=== PATIENT | female | born 1985 | race African-American/Black ===

== ENCOUNTER 2017-01-07 16:40 | Emergency (ER) | payer SELFPAY ==
[~2017-01-07] VITALS: Ht 170.2 cm; Wt 130.0 kg
[~2017-01-07 16:40] MED LIST: ALBU0.08 NEB; ALBUAER3 INH; AZIT250T3 PO; PRED20 PO
[2017-01-07 16:41] VITALS: BP 164/78; PULSE 71; RESP 12; TEMP 97.6; O2SAT 98
[2017-01-07] MEDS ORDERED: PROPARACAINE HCL 0.5% OPHT SOLN 15 ML BTL RIGHT EYE ONE (18:15)
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
[2017-01-07 19:32] VITALS: BP 151/63
== END 2017-01-07 19:37 | disposition home or self-care (01) ==
LOC: NEPB 16:40
DX: S05.11XA Contusion of eyeball and orbital tissues, right eye, initial encounter (principal); H57.8 Other specified disorders of eye and adnexa; H53.149 Visual discomfort, unspecified; H53.8 Other visual disturbances; J45.909 Unspecified asthma, uncomplicated; W50.0XXA Accidental hit or strike by another person, initial encounter
CPT/HCPCS: 99284

== ENCOUNTER 2017-01-26 22:45 | Emergency (ER) | payer SELFPAY ==
[~2017-01-26] VITALS: Ht 170.2 cm; Wt 127.3 kg
[2017-01-26 22:46] VITALS: BP 128/60; PULSE 93; RESP 16; TEMP 98.2; O2SAT 98
[2017-01-26] MEDS ORDERED: CYCL1TAB29 PO (23:21)
[2017-01-26] MEDS ORDERED: DICL50TA3 PO (23:21)
--- NOTE | 2017-01-26 23:25 | PD ---
HPI Chief Complaint: Back/ Neck Pain or Injury Time Seen by Provider: 23:22 Travel History International Travel<30 days: No Contact w/Intl Traveler<30days: No Traveled to known affect area: No History of Present Illness HPI 31-year-old black female presents to emergency room with complaints of left lower back pain. She states that now for the last several hours she is developed pain in her left lower back. Worse with bending and movement. She states the pain is moderate but can be severe with movement. She denies any nausea vomiting. No dysuria, frequency or hematuria. She also was on the states that she was cleaning up her house even though she had back pain and dropped her stereo speaker onto her right hand. She is now also having right hand pain. She denies any numbness or tingling. Pain is worse with movement. Some relief with elevation. [facility] Past Medical History Narrative Medical aSTHMA, BACK PAIN Asthma: Yes Diminished Hearing: No Respiratory: Yes Tetanus Vaccination: < 5 Years Influenza Vaccination: No ?: Not LMP: 01/12/2017 Past Surgical History Surgical History: No Previous Surgery Social History Alcohol Use: No Tobacco Use: Yes Substance Use: No Allergies-Medications (Allergen,Severity, Reaction): Uncoded Allergies: gatorade (Allergy, Severe, 11/21/16) Reported Meds & Prescriptions Reported Meds & Active Scripts Active Flexeril (Cyclobenzaprine HCl) 10 Mg Tab 10 Mg PO TID Diclofenac Sodium DR (Diclofenac Sodium) 50 Mg Tabdr 50 Mg PO TID Review of Systems Except as stated in HPI: all other systems reviewed are Neg Physical Exam Narrative GENERAL: Well-developed, well-nourished in no apparent distress. Nontoxic appearing. HEAD: Normocephalic, atraumatic. EYES: Pupils equal round and reactive. Extraocular motions intact. No scleral icterus. No injection or drainage. ENT: Nose clear. Throat without erythema, tonsillar hypertrophy or exudate. Uvula midline. Airway patent. NECK: Trachea midline. Supple, nontender, moves head freely. No central bony tenderness or spasm. CARDIOVASCULAR: Regular rate and rhythm without murmurs, gallops, or rubs. RESPIRATORY: Clear to auscultation. Breath sounds equal bilaterally. No wheezes , rales, or rhonchi. GASTROINTESTINAL: Abdomen soft, non-tender, nondistended. No hepato-splenomegaly , or palpable masses. No guarding. EXTREMITIES: No clubbing, cyanosis, or edema. Examination the right hand reveals pain to the distal third of the fourth and fifth metacarpals. The skin is intact. Minimal swelling. Early ecchymosis. No pain in the fingers, wrist , elbow or shoulder. The left upper extremity as well as lower extremities are unremarkable. BACK: Complains of diffuse lower lumbar tenderness more so on the left side of the right. No point localization. Without deformity. No flank tenderness. NEUROLOGICAL: Awake, alert and oriented x 3 .Cranial nerves grossly intact. Motor and sensory grossly within normal limits. Normal speech. Data Data Last Documented VS Vital Signs Date Time Temp Pulse Resp B/P Pulse Ox O2 Delivery O2 Flow Rate FiO2 01/26/17 22:46 98.2 93 16 128/60 98 Room Air Orders Hand, Complete ([id number]) (01/26/17 23:20) Ice/Cold Pack (01/26/17 23:20) Ketorolac Inj (Toradol Inj) (01/26/17 23:30) Orphenadrine Inj (Norflex Inj) (01/26/17 23:30) MDM Medical Decision Making Medical Screen Exam Complete: Yes Emergency Medical Condition: Yes Medical Record Reviewed: Yes Interpretation(s) Right hand: Negative for acute fracture. Differential Diagnosis MDM: High Differential diagnoses: Fracture, sprain, strain, dislocation, contusion, neurovascular injury, back strain Narrative Course X-ray of the right hand is negative for acute bony injury. Patient is given Toradol 60 and Norflex 60 g IM. This is acute back strain, right hand contusion Diagnosis Primary Impression: acute back strain Additional Impression: Contusion of right hand Qualified Code: S60.221A - Contusion of right hand, initial encounter Patient Instructions: General Instructions Additional Instructions: Rest. Ice for the next 3 days followed by heat . Flexeril and Voltaren. Follow-up with a primary care doctor in one week. Return to the ER for emergencies. Med/Other Pt SpecificInfo: Prescription(s) given Scripts Cyclobenzaprine (Flexeril)10 Mg Tab10 Mg PO TID #30 TAB Prov:Simona Cpoe MD 01/26/[address] 50 Mg Tabdr50 Mg PO TID #30 TAB Prov:Smiona Cope MD 01/26/17 Disposition: 01 DISCHARGE HOME Condition: Stable Husam Martinze Jan 26, 2017 23:25
[2017-01-26] MEDS ORDERED: ORPHENADRINE INJ 60 MG/2 ML AMP IM ONE (23:30)
[2017-01-26] MEDS ORDERED: KETOROLAC TROMETHAMINE 60 MG/2 ML (IM) VIAL IM ONE (23:30)
--- NOTE | 2017-01-27 00:16 | RADRPT ---
EXAM DATE/TIME: 01/26/2017 23:32 [facility] COMPARISON: No previous studies available for comparison. INDICATIONS : Right hand pain after a speaker fell on hand. MEDICAL HISTORY : None. SURGICAL HISTORY : None. ENCOUNTER: Initial ACUITY: 1 day PAIN SCORE: 5/10 LOCATION: Right hand FINDINGS: Three view examination of the right hand demonstrates no soft tissue swelling, dislocation, or fractu re. The carpal bones appear intact. The interphalangeal and metacarpophalangeal joints are intact. Bony mineralization is normal. CONCLUSION: Normal examination for a patient of this age. Husam Cabral MD on January 27, 2017 at 0:14 Board Certified Radiologist. This report was verified electronically.
== END 2017-01-27 00:42 | disposition home or self-care (01) ==
LOC: NEPB 22:45
DX: S39.012A Strain of muscle, fascia and tendon of lower back, initial encounter (principal); S60.221A Contusion of right hand, initial encounter; Z72.0 Tobacco use; Z87.09 Personal history of other diseases of the respiratory system; Z87.39 Personal history of other diseases of the musculoskeletal system and connective tissue; X58.XXXA Exposure to other specified factors, initial encounter; W20.8XXA Other cause of strike by thrown, projected or falling object, initial encounter; Y93.E9 Activity, other interior property and clothing maintenance; Y92.009 Unspecified place in unspecified non-institutional (private) residence as the place of occurrence of the external cause
CPT/HCPCS: 73130; 96372; 99283; J1885; J2360

== ENCOUNTER 2017-02-12 14:30 | Emergency (ER) | payer SELFPAY ==
[~2017-02-12] VITALS: Ht 170.2 cm; Wt 140.0 kg
[~2017-02-12 14:30] MED LIST changes: -ALBU0.08 NEB; -ALBUAER3 INH; -AZIT250T3 PO; +CYCL1TAB29 PO; +DICL50TA3 PO; -PRED20 PO
[2017-02-12 14:31] VITALS: BP 133/77; PULSE 78; RESP 18; TEMP 98.3; O2SAT 97
--- NOTE | 2017-02-12 15:47 | PD ---
HPI Chief Complaint: Back/ Neck Pain or Injury Time Seen by Provider: 15:46 Travel History International Travel<30 days: No Contact w/Intl Traveler<30days: No Traveled to known affect area: No History of Present Illness HPI 31-year-old female presents to the emergency Department with complaint of back pain all over since yesterday. She denies injury, straining, heavy lifting. Has had similar back pain but not this bad. Says she was seen here a few weeks ago for similar symptoms. Denies encopresis, incontinence, saddle anesthesias. Denies dysuria, urgency or frequency, hesitancy. Denies paresthesias, loss of sensation, decreased range of motion, decreased strength to bilateral lower extremities. Denies fever, chills, nausea, vomiting, abdominal pain, shortness of breath, chest pain. Denies IV drug use, cancer. Has not taken any medications or tried any treatments to alleviate her symptoms. Pain is constant. Describes it as a wrenching pain that tightens and untightens. No known relieving factors. Aggravated with movement. Allergies to Gatorade. History of asthma. No other modifying factors or associated signs and symptoms. PFSH Past Medical History Asthma: Yes Diminished Hearing: No Respiratory: Yes ?: Not LMP: 01/12/17 Social History Alcohol Use: No Tobacco Use: Yes Substance Use: No Allergies-Medications (Allergen,Severity, Reaction): Uncoded Allergies: gatorade (Allergy, Severe, 11/21/16) Reported Meds & Prescriptions Reported Meds & Active Scripts Active Diclofenac Sodium DR (Diclofenac Sodium) 50 Mg Tabdr 50 Mg PO TID Flexeril (Cyclobenzaprine HCl) 10 Mg Tab 10 Mg PO TID Review of Systems Except as stated in HPI: all other systems reviewed are Neg Physical Exam Narrative GENERAL: Well-nourished, well-developed female patient, in no acute distress; tearful crying SKIN: Warm and dry. HEAD: Atraumatic. Normocephalic. EYES: Pupils equal and round. No scleral icterus. No injection or drainage. ENT: Mucosa pink and moist. Airway patent. NECK: Trachea midline. CARDIOVASCULAR: Regular rate. RESPIRATORY: No accessory muscle use. GASTROINTESTINAL: Obese. MUSCULOSKELETAL: Bilateral lower extremities supple and non-tense with 2+ pedal pulses and sensory intact; with full range of motion and 5/5 strength. Active dorsiflexion and extension of bilateral feet. Ambulatory in room and hallway with normal gait. Sitting up in bed at 90. No obvious deformities. No clubbing. No cyanosis. No edema. BACK: Diffuse pain on light palpation to mid and lower back. Unable to pinpoint specific area of pain. Pain seems to be out of proportion for exam. No obvious deformities. NEUROLOGICAL: Awake and alert. Oriented 3. No obvious cranial nerve deficits. Motor grossly within normal limits. Normal speech. Moves all extremities. 5/5 strength to all extremities. Sensory intact. PSYCHIATRIC: Appropriate mood and affect; insight and judgment normal. Data Data Last Documented VS Vital Signs Date Time Temp Pulse Resp B/P Pulse Ox O2 Delivery O2 Flow Rate FiO2 02/12/17 14:31 98.3 78 18 133/77 97 Room Air Orders Ketorolac Inj (Toradol Inj) (02/12/17 16:00) Orphenadrine Inj (Norflex Inj) (02/12/17 16:00) Urinalysis - C+S If Indicated (02/12/17 15:47) Labs Laboratory Tests Test 02/12/17 15:50 Urine Color YELLOW Urine Turbidity HAZY Urine pH 6.5 Urine Specific [place] 1.033 Urine Protein TRACE mg/dL Urine Glucose (UA) NEG mg/dL Urine Ketones 10 mg/dL Urine Occult Blood NEG Urine Nitrite NEG Urine Bilirubin NEG Urine Urobilinogen 2.0 MG/DL Urine Leukocyte Esterase SMALL Urine RBC LESS THAN 1 /hpf Urine WBC 5 /hpf Urine Squamous Epithelial 9 /hpf Cells Urine Bacteria RARE /hpf Urine Mucus FEW /lpf Microscopic Urinalysis Comment CULT NOT INDICATED MDM Medical Decision Making Medical Screen Exam Complete: Yes Emergency Medical Condition: Yes Medical Record Reviewed: Yes Differential Diagnosis Muscle spasms of back, back strain, UTI Narrative Course 31-year-old female who is crying and tearful with back pain. Her pain seems to be out of proportion with physical exam. Patient is ambulatory in the room and in the hallway with a normal gait. She was seen on January 26 with similar complaint, although she says her back pain was not as bad as it is now. Patient is afebrile and nontoxic-appearing. She denies fever, chills, nausea, vomiting. Denies IV drug use, cancer. Denies encopresis, incontinence, saddle anesthesias. Denies urinary symptoms. I will check a urine to rule out UTI. Toradol and Norflex ordered. Urinalysis ordered. 1701: Urinalysis without signs of infection. Diclofenac and Flexeril prescribed for home. Patient verbalizes understanding and agreement with treatment plan. Patient is medically cleared and stable for discharge. Discussed reasons to return to the emergency department. Instructed patient to follow up with primary care provider. Patient agrees with treatment plan. The patients vital signs are stable and the patient is stable for outpatient follow- up and treatment. Patient discharged home, stable and in no acute distress. Diagnosis Primary Impression: Muscle spasm of back Additional Impression: Back pain Qualified Code: M54.9 - Back pain, unspecified back location, unspecified back pain laterality, unspecified chronicity Referrals: Primary Care Physician Patient Instructions: Back Pain (ED), General Instructions, Muscle Spasm (ED) Departure Forms: Tests/Procedures, Work Release Enter return to work date: Feb 14, 2017 Additional Instructions: Tylenol or ibuprofen as directed and as needed for pain Flexeril as prescribed and as needed for muscle spasms Heating pad and/or ice to affected area to reduce pain Avoid aggravating activities; increase activity as tolerated Follow-up with primary care provider Return to emergency department immediately with worsening of symptoms Med/Other Pt SpecificInfo: Prescription(s) given Scripts Diclofenac Sodium DR 50 Mg Tabdr50 Mg PO TID #30 TAB Prov:Leeanna Rg 02/12/17 Cyclobenzaprine (Flexeril)10 Mg Tab10 Mg PO TID #30 TAB Prov:Leeanna Rg 02/12/17 Disposition: 01 DISCHARGE HOME Condition: Stable Leeanna Rg Feb 12, 2017 15:46
[2017-02-12] MEDS ORDERED: DICL50TA3 PO (15:56)
[2017-02-12] MEDS ORDERED: CYCL1TAB29 PO (15:56)
[2017-02-12] MEDS ORDERED: KETOROLAC TROMETHAMINE 60 MG/2 ML (IM) VIAL IM ONE (16:00)
[2017-02-12] MEDS ORDERED: ORPHENADRINE INJ 60 MG/2 ML AMP IM ONE (16:00)
[2017-02-12 16:43] LABS: BACTERIA, URINE RARE /hpf; BLOOD, URINE NEG (NEG); COMMENT (UR) CULT NOT INDICATED; CULTURE IF INDICATED CULT NOT INDICATED; GLUCOSE,URINE NEG (NEG); KETONE, URINE 10 mg/dL (NEG); MUCUS URINE FEW /lpf (OCC); NITRITE,URINE NEG (NEG); PH, URINE 6.5 (5.0-8.5); SQUAMOUS EPITHELIAL CELL URINE 9 /hpf (0-5); URINE COLOR YELLOW (YELLW/STRAW)
[2017-02-12 17:14] VITALS: RESP 20
== END 2017-02-12 17:13 | disposition home or self-care (01) ==
LOC: NEPB 14:30
DX: M54.9 Dorsalgia, unspecified (principal); M62.830 Muscle spasm of back; J45.909 Unspecified asthma, uncomplicated; Z72.0 Tobacco use
CPT/HCPCS: 81001; 96372; 99283; J1885; J2360

== ENCOUNTER 2017-02-20 19:20 | Emergency (ER) | payer SELFPAY ==
[~2017-02-20] VITALS: Ht 170.2 cm; Wt 130.0 kg
[2017-02-20 19:32] VITALS: BP 134/84; PULSE 76; RESP 18; TEMP 98.4; O2SAT 99
[2017-02-20] MEDS ORDERED: SODIUM CHLOR 0.9% 1000 ML INJ 1,000 ML IV SCH (20:57)
[2017-02-20] MEDS ORDERED: SODIUM CHLORIDE 0.9% FLUSH 10 ML FLUSH IV FLUSH PRN (21:00)
[2017-02-20] MEDS ORDERED: ONDANSETRON HCL 4 MG/2 ML VIAL IVP ONE (21:00)
[2017-02-20] MEDS ORDERED: ALUMINUM/MAGNESIUM/SIMETH 30 ML CUP PO ONE (21:00)
[2017-02-20] MEDS ORDERED: LIDOCAINE VISCOUS 2% SOLN 15 ML UDC PO ONE (21:00)
[2017-02-20] MEDS ORDERED: PANTOPRAZOLE SODIUM 40 MG VIAL IVP ONE (21:00)
[2017-02-20] MEDS ORDERED: ALBU0.63 NEB (21:02)
[2017-02-20 21:03] VITALS: BP 115/70; PULSE 66; RESP 18; O2SAT 99
--- NOTE | 2017-02-20 21:14 | PD ---
HPI Chief Complaint: GI Complaint Time Seen by Provider: 20:55 Travel History International Travel<30 days: No Contact w/Intl Traveler<30days: No Traveled to known affect area: No History of Present Illness HPI 31-year-old Afro-[place] female presents the emergency department with acute nausea and vomiting since early this morning, with recurrent epigastric tenderness. Patient last vomited approximately one hour prior to this exam. Patient was brought in by ambulance and given Zofran 4 mg IV. Patient has had chills but no specific fever. She denies lower abdominal tenderness or urinary symptoms other than frequency or CVA tenderness. Patient denies upper respiratory symptoms or chest pain or shortness of breath. Patient's last menstrual period was early December, and she is overdue for her. At this time. Patient is unsure whether she could be . Patient has a history of with 2 miscarriages previously. Patiently recently moved here from [facility]. She states she is allergic to Gatorade and Powerade causes her throat to swell. She has no allergies to medication. PFSH Past Medical History Asthma: Yes Diminished Hearing: No Respiratory: Yes (ASTHMA) ?: Unknown LMP: 01/12 : 2 Para: 0 Miscarriage: 2 Past Surgical History Surgical History: No Previous Surgery Social History Alcohol Use: No Tobacco Use: Yes Substance Use: No Allergies-Medications (Allergen,Severity, Reaction): Uncoded Allergies: gatorade (Allergy, Severe, 11/21/16) Reported Meds & Prescriptions Reported Meds & Active Scripts Active Zofran Odt (Ondansetron Odt) 4 Mg Tab 4 Mg SL Q6HR PRN Omeprazole 40 Mg Cap 40 Mg PO DAILY Keflex (Cephalexin) 500 Mg Cap 500 Mg PO Q8H Reported Albuterol Neb (Albuterol Sulfate) 0.63 Mg/3 Ml Neb 0.63 Mg NEB Q4HR NEB PRN Review of Systems Except as stated in HPI: all other systems reviewed are Neg General / Constitutional: Positive: Chills, No: Fever Eyes: No: Visual changes HENT: No: Headaches Cardiovascular: No: Chest Pain or Discomfort Respiratory: No: Shortness of Breath Gastrointestinal: Positive: Nausea, Vomiting, Abdominal Pain, No: Diarrhea, Hematemesis, Hematochezia, Constipation, Changes in Bowel Habits, Indigestion, Dysphagia, Loss of Appetite Genitourinary: Positive: Frequency, No: Urgency, Dysuria, Nocturia, Hematuria Musculoskeletal: No: Pain Skin: No Rash Neurologic: No: Weakness Psychiatric: No: Depression Endocrine: No: Polydipsia Hematologic/Lymphatic: No: Easy Bruising Physical Exam Narrative GENERAL: Moderately obese female in mild distress. SKIN: Warm and dry. Normal color. Normal turgor. No diaphoresis. HEAD: Atraumatic. Normocephalic. EYES: Pupils equal and round. No scleral icterus. No injection or drainage. ENT: No nasal bleeding or discharge. Mucous membranes pink and moist. TMs clear. Pharynx is normal. Airway is patent. NECK: Trachea midline. No JVD. Supple nontender. CARDIOVASCULAR: Regular rate and rhythm. No murmurs gallops or rubs. RESPIRATORY: No accessory muscle use. Clear to auscultation. Breath sounds equal bilaterally. GASTROINTESTINAL: Abdomen soft, specifically epigastric tenderness with palpation, nondistended. No lower abdominal discomfort. Hepatic and splenic margins not palpable. No CVA tenderness. MUSCULOSKELETAL: Extremities without clubbing, cyanosis, or edema. No obvious deformities. NEUROLOGICAL: Awake and alert. No obvious cranial nerve deficits. Motor grossly within normal limits. Five out of 5 muscle strength in the arms and legs. Normal speech. PSYCHIATRIC: Appropriate mood and affect; insight and judgment normal. Data Data Last Documented VS Vital Signs Date Time Temp Pulse Resp B/P Pulse Ox O2 Delivery O2 Flow Rate FiO2 02/20/17 21:03 18 02/20/17 21:03 66 115/70 99 Room Air 02/20/17 19:32 98.4 Orders Complete Blood Count With Diff (02/20/17 20:57) Comprehensive Metabolic Panel (02/20/17 20:57) Lipase (02/20/17 20:57) Urinalysis - C+S If Indicated (02/20/17 20:57) Iv Access Insert/Monitor (02/20/17 20:57) Ecg Monitoring (02/20/17 20:57) Oximetry (02/20/17 20:57) NPO (02/20/17 20:57) Ondansetron Inj (Zofran Inj) (02/20/17 21:00) Pantoprazole Inj (Protonix Inj) (02/20/17 21:00) Sodium Chlor 0.9% 1000 Ml Inj (Ns 1000 M (02/20/17 20:57) Sodium Chloride 0.9% Flush (Ns Flush) (02/20/17 21:00) Al-Mag Hy-Si 40-40-4 Mg/Ml Liq (Mag-Al P (02/20/17 21:00) Lidocaine 2% Viscous (Xylocaine 2% Visco (02/20/17 21:00) Ed Urine Pregnancytest Poc (02/20/17 20:57) Influenzae A/B Antigen (02/20/17 20:57) Urine Culture (02/20/17 21:20) Ceftriaxone Inj (Rocephin Inj) (02/20/17 22:00) Labs Laboratory Tests Test 02/20/17 21:20 White Blood Count 7.8 TH/MM3 Red Blood Count 4.38 MIL/MM3 Hemoglobin 11.6 GM/DL Hematocrit 35.0 % Mean Corpuscular Volume 80.0 FL Mean Corpuscular Hemoglobin 26.4 PG Mean Corpuscular Hemoglobin 33.0 % Concent Red Cell Distribution Width 17.3 % Platelet Count 378 TH/MM3 Mean Platelet Volume 8.6 FL Neutrophils (%) (Auto) 50.0 % Lymphocytes (%) (Auto) 39.4 % Monocytes (%) (Auto) 6.8 % Eosinophils (%) (Auto) 3.0 % Basophils (%) (Auto) 0.8 % Neutrophils # (Auto) 3.9 TH/MM3 Lymphocytes # (Auto) 3.1 TH/MM3 Monocytes # (Auto) 0.5 TH/MM3 Eosinophils # (Auto) 0.2 TH/MM3 Basophils # (Auto) 0.1 TH/MM3 CBC Comment DIFF FINAL Differential Comment Urine Color YELLOW Urine Turbidity CLEAR Urine pH 6.0 Urine Specific [place] 1.020 Urine Protein NEG mg/dL Urine Glucose (UA) NEG mg/dL Urine Ketones NEG mg/dL Urine Occult Blood NEG Urine Nitrite NEG Urine Bilirubin NEG Urine Urobilinogen LESS THAN 2.0 MG/DL Urine Leukocyte Esterase TRACE Urine WBC 2 /hpf Urine Squamous Epithelial 3 /hpf Cells Urine Bacteria MOD /hpf Urine Mucus FEW /lpf Microscopic Urinalysis Comment CULTURE INDICATED Sodium Level 138 MEQ/L Potassium Level 3.7 MEQ/L Chloride Level 103 MEQ/L Carbon Dioxide Level 29.4 MEQ/L Anion Gap 6 MEQ/L Blood Urea Nitrogen 14 MG/DL Creatinine 0.76 MG/DL Estimat Glomerular Filtration 108 ML/MIN Rate Random Glucose 84 MG/DL Calcium Level 8.6 MG/DL Total Bilirubin LESS THAN 0.1 MG/DL Aspartate Amino Transf 11 U/L (AST/SGOT) Alanine Aminotransferase 23 U/L (ALT/SGPT) Alkaline Phosphatase 53 U/L Total Protein 7.5 GM/DL Albumin 3.1 GM/DL Lipase 126 U/L MDM Medical Decision Making Medical Screen Exam Complete: Yes Emergency Medical Condition: Yes Differential Diagnosis Acute nausea and vomiting. Gastritis. Possible influenza. Possible . UTI. Narrative Course Patient is medically stable at time of exam. Labs ordered including CBC, CMP, lipase, and urinalysis as well as urine test. Rapid influenza test is ordered. IV access is maintained from EMS, and patient is given 4 mg additional Zofran IV as well as 40 mg pantoprazole IV. Patient is given a GI cocktail for epigastric tenderness. Patient is given 1000 mL normal saline bolus IV. 2146 patient is reevaluated and has improved abdominal discomfort status post GI cocktail. CBC is unremarkable. CMP is unremarkable. Urinalysis is suggestive of urinary tract infection. Influenza test is negative. Patient is given 1000 mg Rocephin IV. Patient is felt stable to be discharged home. Patient will be discharged with Zofran ODT one every 6 hours when necessary nausea #15. Continued on Keflex 500 mg 3 times a day 7 days. Patient is placed on omeprazole 40 mg daily for the next 2 weeks. [facility]. Urine culture is pending. Patient can return the emergency Department with worsening symptoms if warranted. Diagnosis Primary Impression: UTI (urinary tract infection) Qualified Code: N30.00 - Acute cystitis without hematuria Additional Impressions: Nausea & vomiting Qualified Code: R11.2 - Non-intractable vomiting with nausea, unspecified vomiting type Gastritis Qualified Code: K29.00 - Acute gastritis without hemorrhage, unspecified gastritis type Referrals: [facility] Patient Instructions: Acute Nausea and Vomiting (ED), Diet for Stomach Ulcers and Gastritis (ED), Dysuria (ED), General Instructions Additional Instructions: CBC is unremarkable. CMP is unremarkable. Urinalysis is suggestive of urinary tract infection. Patient is given 1000 mg Rocephin IV. Patient is felt stable to be discharged home. Patient will be discharged with Zofran ODT one every 6 hours when necessary nausea #15. Continued on Keflex 500 mg 3 times a day 7 days. Patient is placed on omeprazole 40 mg daily for the next 2 weeks. [facility]. Urine culture is pending. Patient can return the emergency Department with worsening symptoms if warranted. Med/Other Pt SpecificInfo: Prescription(s) given Scripts Ondansetron Odt (Zofran Odt)4 Mg Tab4 Mg SL Q6HR PRN (Nausea/Vomiting) #15 TAB Prov:Zoë Blood MD 02/20/17 Omeprazole 40 Mg Cap40 Mg PO DAILY #15 CAP Prov:Zoë Blood MD 02/20/17 Cephalexin (Keflex)500 Mg Qvt490 Mg PO Q8H #21 CAP Prov:Zoë Blood MD 02/20/17 Disposition: 01 DISCHARGE HOME Condition: Stable Castro Perez Feb 20, 2017 21:14
[2017-02-20 21:46] LABS: AUTOMATED NEUTROPHIL # 3.9 TH/MM3 (1.8-7.7); BASOPHIL # 0.1 TH/MM3 (0-0.2); BASOPHIL % 0.8 % (0.0-2.0); EOSINOPHIL # 0.2 TH/MM3 (0-0.4); HEMO FLAGS DIFF FINAL; LYMPH % 39.4 % (9.0-44.0); LYMPHOCYTE # 3.1 TH/MM3 (1.0-4.8); MEAN CORPUSCULAR HEMOGLOBIN 26.4 PG (27.0-34.0); MONO % 6.8 % (0.0-8.0); PLATELET COUNT 378 TH/MM3 (150-450); RED BLOOD COUNT 4.38 MIL/MM3 (4.00-5.30); RED CELL DISTRIBUTION WIDTH 17.3 % (11.6-17.2); WHITE BLOOD COUNT 7.8 TH/MM3 (4.0-11.0)
[2017-02-20 21:52] LABS: BACTERIA, URINE MOD /hpf; BLOOD, URINE NEG (NEG); COMMENT (UR) CULTURE INDICATED; CULTURE IF INDICATED CULTURE INDICATED; GLUCOSE,URINE NEG (NEG); KETONE, URINE NEG (NEG); MUCUS URINE FEW /lpf (OCC); NITRITE,URINE NEG (NEG); SQUAMOUS EPITHELIAL CELL URINE 3 /hpf (0-5); URINE COLOR YELLOW (YELLW/STRAW)
[2017-02-20] MEDS ORDERED: cefTRIAXone INJ 1,000 MG in SODIUM CHLORIDE 0.9% INJ 100 ML IV ONE (22:00)
[2017-02-20 22:03] LABS: ANION GAP 6 MEQ/L (5-15); AST (GOT) 11 U/L (15-37); BICARBONATE 29.4 MEQ/L (21.0-32.0); BLOOD UREA NITROGEN 14 MG/DL (7-18); CHLORIDE 103 MEQ/L (98-107); GLOMERULAR FILTRATION RATE 108 ML/MIN (>89); POTASSIUM 3.7 MEQ/L (3.5-5.1); SODIUM (NA) 138 MEQ/L (136-145)
[2017-02-20 22:06] LABS: ALKALINE PHOSPHATASE 53 U/L (45-117); ALT (GPT) 23 U/L (10-53); TOTAL BILIRUBIN ADULT LESS THAN 0.1 MG/DL (0.2-1.0)
[2017-02-20] MEDS ORDERED: CEPH-460 PO (22:12)
[2017-02-20] MEDS ORDERED: ZOFR4TAB3 SL (22:12)
[2017-02-20] MEDS ORDERED: OMEP40CA2 PO (22:12)
[2017-02-20 23:03] VITALS: BP 132/72
== END 2017-02-20 23:05 | disposition home or self-care (01) ==
LOC: NEPC 19:20
DX: N30.00 Acute cystitis without hematuria (principal); R11.2 Nausea with vomiting, unspecified; K29.00 Acute gastritis without bleeding; B96.20 Unspecified Escherichia coli [E. coli] as the cause of diseases classified elsewhere; Z72.0 Tobacco use; Z87.09 Personal history of other diseases of the respiratory system
CPT/HCPCS: 80053; 81001; 83690; 84703; 85025; 87077; 87086; 87186; 87804; 96374; 96375; 99284; C9113; J0696; J2405; J7030

== ENCOUNTER 2017-03-22 19:15 | Emergency (ER) | payer SELFPAY ==
[~2017-03-22] VITALS: Ht 170.2 cm; Wt 130.9 kg
[~2017-03-22 19:15] MED LIST changes: +ALBU0.63 NEB; +CEPH-460 PO; -CYCL1TAB29 PO; -DICL50TA3 PO; +OMEP40CA2 PO; +ZOFR4TAB3 SL
[2017-03-22 19:24] VITALS: BP 148/73; PULSE 86; RESP 18; TEMP 100.1; O2SAT 95
[2017-03-22 19:27] VITALS: BP 148/73; PULSE 84; RESP 16; O2SAT 97
[2017-03-22] MEDS ORDERED: KETOROLAC TROMETHAMINE 30 MG/ML (IVP) VIAL IV PUSH ONE (19:45)
[2017-03-22] MEDS ORDERED: SODIUM CHLOR 0.9% 1000 ML INJ 1,000 ML IV SCH (19:45)
[2017-03-22] MEDS ORDERED: PROCHLORPERAZINE INJ 10 MG/2 ML VIAL IV PUSH ONE (19:45)
[2017-03-22] MEDS ORDERED: SODIUM CHLORIDE 0.9% FLUSH 10 ML FLUSH IV FLUSH PRN (19:45)
[2017-03-22] MEDS ORDERED: diphenhydrAMINE HCL 50 MG/ML VIAL IV PUSH ONE (19:45)
--- NOTE | 2017-03-22 19:55 | PD ---
HPI Chief Complaint: Abdominal Pain Time Seen by Provider: 19:51 Travel History International Travel<30 days: No Contact w/Intl Traveler<30days: No Traveled to known affect area: No History of Present Illness HPI 31-year-old black female presents emergency department by EMS for evaluation of nausea vomiting. She states that approximately one hour prior to arrival she is developed vomiting. She states that she's been having intermittent left lower abdominal discomfort for the past week. She states that is been constant but the intensity has been waxing and waning. Currently it is mild to moderate. Sharp in nature. There is worsening of symptoms when she sits up and moves. She feels somewhat better when she lays down. She denies any fever chills. She has had some sore throat. No cough or congestion. No upper abdominal pain. She has had a positive appetite. She denies any pelvic pain. No vaginal discharge. No dysuria or frequency. No hematuria. The patient does make note that her last menstrual cycle was 02/10/17. There is potential for . PFSH Past Medical History Narrative Medical Asthma, UTI Asthma: Yes Diminished Hearing: No Respiratory: Yes (ASTHMA) Tetanus Vaccination: < 5 Years ?: Unknown LMP: 02/10/2017 : 2 Para: 0 Miscarriage: 2 Past Surgical History Surgical History: No Previous Surgery Social History Alcohol Use: No Tobacco Use: Yes Substance Use: No Allergies-Medications (Allergen,Severity, Reaction): Uncoded Allergies: gatorade (Allergy, Severe, 11/21/16) Reported Meds & Prescriptions Reported Meds & Active Scripts Active Zofran (Ondansetron HCl) 4 Mg Tab 4 Mg PO Q6HR PRN Bactrim DS (Sulfamethoxazole-Trimethoprim) 800-160 Mg Tab 1 Tab PO BID Reported Albuterol Neb (Albuterol Sulfate) 0.63 Mg/3 Ml Neb 0.63 Mg NEB Q4HR NEB PRN Review of Systems Except as stated in HPI: all other systems reviewed are Neg Physical Exam Narrative GENERAL: Well-developed, well-nourished in no apparent distress. Nontoxic appearing. HEAD: Normocephalic, atraumatic. EYES: Pupils equal round and reactive. Extraocular motions intact. No scleral icterus. No injection or drainage. ENT: Nose clear. Throat without erythema, tonsillar hypertrophy or exudate. Uvula midline. Airway patent. NECK: Trachea midline. Supple, nontender, moves head freely. No central bony tenderness or spasm. CARDIOVASCULAR: Regular rate and rhythm without murmurs, gallops, or rubs. RESPIRATORY: Clear to auscultation. Breath sounds equal bilaterally. No wheezes , rales, or rhonchi. GASTROINTESTINAL: Abdomen soft, obese, mild tenderness in the left lower quadrant, nondistended. No hepato-splenomegaly, or palpable masses. No guarding. EXTREMITIES: No clubbing, cyanosis, or edema. No joint tenderness. BACK: Nontender without deformity. No flank tenderness. NEUROLOGICAL: Awake, alert and oriented x 3 .Cranial nerves grossly intact. Motor and sensory grossly within normal limits. Normal speech. Data Data Last Documented VS Vital Signs Date Time Temp Pulse Resp B/P Pulse Ox O2 Delivery O2 Flow Rate FiO2 03/22/17 19:58 Room Air 03/22/17 19:27 84 16 148/73 97 03/22/17 19:24 100.1 Orders Complete Blood Count With Diff (03/22/17 19:45) Comprehensive Metabolic Panel (03/22/17 19:45) Lactic Acid (03/22/17 19:45) Urinalysis - C+S If Indicated (03/22/17 19:45) Iv Access Insert/Monitor (03/22/17 19:45) Ecg Monitoring (03/22/17 19:45) Oximetry (03/22/17 19:45) Sodium Chlor 0.9% 1000 Ml Inj (Ns 1000 M (03/22/17 19:45) Sodium Chloride 0.9% Flush (Ns Flush) (03/22/17 19:45) Ed Urine Pregnancytest Poc (03/22/17 19:45) Diphenhydramine Inj (Benadryl Inj) (03/22/17 19:45) Prochlorperazine Inj (Compazine Inj) (03/22/17 19:45) Ketorolac Inj (Toradol Inj) (03/22/17 19:45) C-Reactive Protein (Crp) (03/22/17 19:45) Urine Culture (03/22/17 19:34) Sulfamet-Trimeth Ds 800-160 Mg (Bactrim (03/22/17 21:00) Labs Laboratory Tests Test 03/22/17 19:34 White Blood Count 8.1 TH/MM3 Red Blood Count 3.87 MIL/MM3 Hemoglobin 10.1 GM/DL Hematocrit 30.7 % Mean Corpuscular Volume 79.3 FL Mean Corpuscular Hemoglobin 26.1 PG Mean Corpuscular Hemoglobin 32.9 % Concent Red Cell Distribution Width 16.2 % Platelet Count 357 TH/MM3 Mean Platelet Volume 8.6 FL Neutrophils (%) (Auto) 63.6 % Lymphocytes (%) (Auto) 23.8 % Monocytes (%) (Auto) 9.5 % Eosinophils (%) (Auto) 2.5 % Basophils (%) (Auto) 0.6 % Neutrophils # (Auto) 5.2 TH/MM3 Lymphocytes # (Auto) 1.9 TH/MM3 Monocytes # (Auto) 0.8 TH/MM3 Eosinophils # (Auto) 0.2 TH/MM3 Basophils # (Auto) 0.1 TH/MM3 CBC Comment DIFF FINAL Differential Comment Urine Color YELLOW Urine Turbidity HAZY Urine pH 5.5 Urine Specific [place] 1.018 Urine Protein NEG mg/dL Urine Glucose (UA) NEG mg/dL Urine Ketones NEG mg/dL Urine Occult Blood NEG Urine Nitrite NEG Urine Bilirubin NEG Urine Urobilinogen 2.0 MG/DL Urine Leukocyte Esterase MOD Urine RBC 2 /hpf Urine WBC 13 /hpf Urine Squamous Epithelial 9 /hpf Cells Urine Bacteria RARE /hpf Urine Mucus FEW /lpf Microscopic Urinalysis Comment CULTURE INDICATED Sodium Level 139 MEQ/L Potassium Level 3.5 MEQ/L Chloride Level 103 MEQ/L Carbon Dioxide Level 28.1 MEQ/L Anion Gap 8 MEQ/L Blood Urea Nitrogen 7 MG/DL Creatinine 0.73 MG/DL Estimat Glomerular Filtration 113 ML/MIN Rate Random Glucose 90 MG/DL Lactic Acid Level 0.7 mmol/L Calcium Level 8.1 MG/DL Total Bilirubin 0.2 MG/DL Aspartate Amino Transf 7 U/L (AST/SGOT) Alanine Aminotransferase 14 U/L (ALT/SGPT) Alkaline Phosphatase 57 U/L C-Reactive Protein 3.80 MG/DL Total Protein 7.0 GM/DL Albumin 2.9 GM/DL MDM Medical Decision Making Medical Screen Exam Complete: Yes Emergency Medical Condition: Yes Medical Record Reviewed: Yes Interpretation(s) Laboratory Tests Test 03/22/17 19:34 White Blood Count 8.1 TH/MM3 Red Blood Count 3.87 MIL/MM3 Hemoglobin 10.1 GM/DL Hematocrit 30.7 % Mean Corpuscular Volume 79.3 FL Mean Corpuscular Hemoglobin 26.1 PG Mean Corpuscular Hemoglobin 32.9 % Concent Red Cell Distribution Width 16.2 % Platelet Count 357 TH/MM3 Mean Platelet Volume 8.6 FL Neutrophils (%) (Auto) 63.6 % Lymphocytes (%) (Auto) 23.8 % Monocytes (%) (Auto) 9.5 % Eosinophils (%) (Auto) 2.5 % Basophils (%) (Auto) 0.6 % Neutrophils # (Auto) 5.2 TH/MM3 Lymphocytes # (Auto) 1.9 TH/MM3 Monocytes # (Auto) 0.8 TH/MM3 Eosinophils # (Auto) 0.2 TH/MM3 Basophils # (Auto) 0.1 TH/MM3 CBC Comment DIFF FINAL Differential Comment Urine Color YELLOW Urine Turbidity HAZY Urine pH 5.5 Urine Specific [place] 1.018 Urine Protein NEG mg/dL Urine Glucose (UA) NEG mg/dL Urine Ketones NEG mg/dL Urine Occult Blood NEG Urine Nitrite NEG Urine Bilirubin NEG Urine Urobilinogen 2.0 MG/DL Urine Leukocyte Esterase MOD Urine RBC 2 /hpf Urine WBC 13 /hpf Urine Squamous Epithelial 9 /hpf Cells Urine Bacteria RARE /hpf Urine Mucus FEW /lpf Microscopic Urinalysis Comment CULTURE INDICATED Sodium Level 139 MEQ/L Potassium Level 3.5 MEQ/L Chloride Level 103 MEQ/L Carbon Dioxide Level 28.1 MEQ/L Anion Gap 8 MEQ/L Blood Urea Nitrogen 7 MG/DL Creatinine 0.73 MG/DL Estimat Glomerular Filtration 113 ML/MIN Rate Random Glucose 90 MG/DL Lactic Acid Level 0.7 mmol/L Calcium Level 8.1 MG/DL Total Bilirubin 0.2 MG/DL Aspartate Amino Transf 7 U/L (AST/SGOT) Alanine Aminotransferase 14 U/L (ALT/SGPT) Alkaline Phosphatase 57 U/L C-Reactive Protein 3.80 MG/DL Total Protein 7.0 GM/DL Albumin 2.9 GM/DL Differential Diagnosis MDM: Moderate Differential diagnosis: Vomiting, dehydration, electrolyte abnormality, Gastritis, diverticulitis, pelvic infection, UTI, colitis Narrative Course IV access is obtained. Routine laboratory tests including CBC, chemistry, UA, hCG, CRP, lactic. Patient is given a liter bolus of saline, Benadryl 50 mg IV, Compazine 10 IV, and 30 mg of Toradol IV. Patient's pricey test is negative. Patient is feeling much better. Her nausea is resolved. Her pain is much improved. Repeat exam reveals resolution of her pain to palpation. Patient is nontoxic appearing. She is tolerating by mouth. She is given Bactrim DS by mouth. This is vomiting, UTI Diagnosis Primary Impression: Nausea & vomiting Qualified Code: R11.2 - Non-intractable vomiting with nausea, unspecified vomiting type Additional Impression: UTI (urinary tract infection) Qualified Code: N30.00 - Acute cystitis without hematuria Patient Instructions: General Instructions Additional Instructions: Rest. Increase fluids. Zofran for nausea. Bactrim DS. Recheck with a primary care doctor or a clinic in the next 48 hours. Return to the ER if symptoms worsen or any other problems present. Med/Other Pt SpecificInfo: Prescription(s) given Scripts Ondansetron (Zofran)4 Mg Tab4 Mg PO Q6HR PRN (NAUSEA OR VOMITING) #6 TAB Prov:Juventino Lopez MD 03/22/17 Sulfamethoxazole-Trimethoprim (Bactrim DS)800-160 Mg Tab1 Tab PO BID #20 TAB Prov:Juventino Lopez MD 03/22/17 Disposition: 01 DISCHARGE HOME Condition: Stable Husam Martinez Mar 22, 2017 19:55
[2017-03-22 20:16] LABS: AUTOMATED NEUTROPHIL # 5.2 TH/MM3 (1.8-7.7); BASOPHIL # 0.1 TH/MM3 (0-0.2); BASOPHIL % 0.6 % (0.0-2.0); EOSINOPHIL # 0.2 TH/MM3 (0-0.4); EOSINOPHIL % 2.5 % (0.0-4.0); HEMATOCRIT 30.7 % (35.0-46.0); HEMO FLAGS DIFF FINAL; LYMPH % 23.8 % (9.0-44.0); LYMPHOCYTE # 1.9 TH/MM3 (1.0-4.8); MEAN CELL VOLUME 79.3 FL (80.0-100.0); MEAN CORPUSCULAR HEMOGLOBIN 26.1 PG (27.0-34.0); MEAN CORPUSCULAR HGB CONC 32.9 % (32.0-36.0); MONO % 9.5 % (0.0-8.0); NEUT % 63.6 % (16.0-70.0); PLATELET COUNT 357 TH/MM3 (150-450); RED BLOOD COUNT 3.87 MIL/MM3 (4.00-5.30); RED CELL DISTRIBUTION WIDTH 16.2 % (11.6-17.2); WHITE BLOOD COUNT 8.1 TH/MM3 (4.0-11.0)
[2017-03-22 20:25] LABS: BACTERIA, URINE RARE /hpf; BLOOD, URINE NEG (NEG); COMMENT (UR) CULTURE INDICATED; CULTURE IF INDICATED CULTURE INDICATED; GLUCOSE,URINE NEG (NEG); KETONE, URINE NEG (NEG); MUCUS URINE FEW /lpf (OCC); NITRITE,URINE NEG (NEG); PH, URINE 5.5 (5.0-8.5); SQUAMOUS EPITHELIAL CELL URINE 9 /hpf (0-5); URINE COLOR YELLOW (YELLW/STRAW)
[2017-03-22 20:42] LABS: ANION GAP 8 MEQ/L (5-15); AST (GOT) 7 U/L (15-37); BICARBONATE 28.1 MEQ/L (21.0-32.0); BLOOD UREA NITROGEN 7 MG/DL (7-18); CHLORIDE 103 MEQ/L (98-107); GLOMERULAR FILTRATION RATE 113 ML/MIN (>89); POTASSIUM 3.5 MEQ/L (3.5-5.1); SODIUM (NA) 139 MEQ/L (136-145)
[2017-03-22 20:45] LABS: ALKALINE PHOSPHATASE 57 U/L (45-117); ALT (GPT) 14 U/L (10-53); TOTAL BILIRUBIN ADULT 0.2 MG/DL (0.2-1.0)
[2017-03-22] MEDS ORDERED: BACT800T5 PO (20:56)
[2017-03-22] MEDS ORDERED: ZOFR4TAB PO (20:56)
[2017-03-22] MEDS ORDERED: SULFAMETHOXAZOLE-TRIMETHOPRIM DS 800-160 MG TAB PO ONE (21:00)
== END 2017-03-22 21:36 | disposition home or self-care (01) ==
LOC: NEPD 19:15
DX: N30.00 Acute cystitis without hematuria (principal); B96.89 Other specified bacterial agents as the cause of diseases classified elsewhere
CPT/HCPCS: 80053; 81001; 83605; 84703; 85025; 86140; 87077; 87086; 87186; 96361; 96374; 96375; 99284; J0780; J1200; J1885; J7030

== ENCOUNTER 2017-04-29 22:34 | Emergency (ER) | payer SELFPAY ==
[~2017-04-29] VITALS: Ht 170.2 cm; Wt 130.0 kg
[~2017-04-29 22:34] MED LIST changes: +BACT800T5 PO; -CEPH-460 PO; -OMEP40CA2 PO; +ZOFR4TAB PO; -ZOFR4TAB3 SL
[2017-04-29 22:41] VITALS: BP 126/84; PULSE 76; RESP 20; TEMP 98.4; O2SAT 96
[2017-04-29] MEDS ORDERED: SODIUM CHLOR 0.9% 1000 ML INJ 1,000 ML IV SCH (23:16)
--- NOTE | 2017-04-29 23:21 | PD ---
HPI Chief Complaint: Abdominal Pain Time Seen by Provider: 23:16 Travel History International Travel<30 days: No Contact w/Intl Traveler<30days: No Traveled to known affect area: No History of Present Illness HPI 31-year-old female presents to the emergency department for complaint of multiple episodes of vomiting with subsequent streaks of blood in her emesis and lower abdominal pain. Patient states symptoms began this evening. Patient' s had poor appetite for 2 days. Patient a reactive and her last period was normal normal on the . Patient is 3 para 0 AB 3. Patient denies fever chills cough congestion chest pain shortness of breath flank pain dysuria frequency urgency vaginal discharge or abnormal vaginal bleeding. Patient rates her pain as 8/10 intensity. Patient has taken no medications for symptom relief. Patient is unable to identify exacerbating or alleviating factors. PFSH Past Medical History Narrative Medical Asthma, AB 3; tobacco use; nursing notes reviewed Medical History: Denies Significant Hx Asthma: Yes Diminished Hearing: No Respiratory: Yes (ASTHMA) Tetanus Vaccination: Unknown Influenza Vaccination: No ?: Unknown LMP: 04/21/2017 : 2 Para: 0 Miscarriage: 2 Past Surgical History Surgical History: No Previous Surgery Social History Alcohol Use: No Tobacco Use: Yes (black and milds) Substance Use: No Allergies-Medications (Allergen,Severity, Reaction): Uncoded Allergies: gatorade (Allergy, Severe, 11/21/16) Reported Meds & Prescriptions Reported Meds & Active Scripts Active Zofran Odt (Ondansetron Odt) 4 Mg Tab 4 Mg SL Q6HR PRN Reported Albuterol Neb (Albuterol Sulfate) 0.63 Mg/3 Ml Neb 0.63 Mg NEB Q4HR NEB PRN Review of Systems Except as stated in HPI: all other systems reviewed are Neg General / Constitutional: No: Fever, Chills HENT: No: Congestion Cardiovascular: No: Chest Pain or Discomfort Respiratory: No: Shortness of Breath Gastrointestinal: Positive: Nausea, Vomiting, Abdominal Pain, Hematemesis, Loss of Appetite (streaks), No: Diarrhea Genitourinary: No: Dysuria, Flank Pain, Discharge, Vaginal Bleeding Musculoskeletal: No: Myalgias, Arthralgias Skin: No Rash Neurologic: No: Weakness Hematologic/Lymphatic: No: Lymph Node Enlargement Physical Exam Narrative GENERAL: Well-developed well-nourished female in acute distress no respiratory distress SKIN: Warm and dry. HEAD: Normocephalic. EYES: No scleral icterus. No injection or drainage. NECK: Supple, trachea midline. No JVD or lymphadenopathy. CARDIOVASCULAR: Regular rate and rhythm without murmurs, gallops, or rubs. RESPIRATORY: Breath sounds equal bilaterally. No accessory muscle use. GASTROINTESTINAL: Abdomen soft, mild bilateral lower quadrant tenderness right greater than left without guarding or rebound, nondistended. MUSCULOSKELETAL: No cyanosis, or edema. BACK: Nontender without obvious deformity. No CVA tenderness. Data Data Last Documented VS Vital Signs Date Time Temp Pulse Resp B/P Pulse Ox O2 Delivery O2 Flow Rate FiO2 04/30/17 00:41 79 18 118/63 100 Room Air 04/29/17 22:41 98.4 Orders Complete Blood Count With Diff (04/29/17 23:16) Comprehensive Metabolic Panel (04/29/17 23:16) Lipase (04/29/17 23:16) Urinalysis - C+S If Indicated (04/29/17 23:16) Ct Abd/Pel W Iv Contrast(Rout) (04/29/17 23:16) Iv Access Insert/Monitor (04/29/17 23:16) Ecg Monitoring (04/29/17 23:16) Oximetry (04/29/17 23:16) Ondansetron Inj (Zofran Inj) (04/29/17 23:30) Sodium Chlor 0.9% 1000 Ml Inj (Ns 1000 M (04/29/17 23:16) Sodium Chloride 0.9% Flush (Ns Flush) (04/29/17 23:30) Ed Urine Pregnancytest Poc (04/29/17 23:16) Iohexol 350 Inj (Omnipaque 350 Inj) (04/30/17 00:59) Labs Laboratory Tests Test 04/29/17 23:25 White Blood Count 6.6 TH/MM3 Red Blood Count 3.95 MIL/MM3 Hemoglobin 9.6 GM/DL Hematocrit 30.8 % Mean Corpuscular Volume 78.0 FL Mean Corpuscular Hemoglobin 24.3 PG Mean Corpuscular Hemoglobin 31.2 % Concent Red Cell Distribution Width 16.1 % Platelet Count 423 TH/MM3 Mean Platelet Volume 8.9 FL Neutrophils (%) (Auto) 53.2 % Lymphocytes (%) (Auto) 37.0 % Monocytes (%) (Auto) 5.9 % Eosinophils (%) (Auto) 3.0 % Basophils (%) (Auto) 0.9 % Neutrophils # (Auto) 3.5 TH/MM3 Lymphocytes # (Auto) 2.4 TH/MM3 Monocytes # (Auto) 0.4 TH/MM3 Eosinophils # (Auto) 0.2 TH/MM3 Basophils # (Auto) 0.1 TH/MM3 CBC Comment DIFF FINAL Differential Comment Urine Color YELLOW Urine Turbidity CLEAR Urine pH 6.0 Urine Specific [place] 1.034 Urine Protein TRACE mg/dL Urine Glucose (UA) NEG mg/dL Urine Ketones NEG mg/dL Urine Occult Blood TRACE Urine Nitrite NEG Urine Bilirubin NEG Urine Urobilinogen 4.0 MG/DL Urine Leukocyte Esterase TRACE Urine RBC 1 /hpf Urine WBC 4 /hpf Urine Squamous Epithelial 5 /hpf Cells Urine Mucus FEW /lpf Microscopic Urinalysis Comment CULT NOT INDICATED Sodium Level 142 MEQ/L Potassium Level 4.0 MEQ/L Chloride Level 107 MEQ/L Carbon Dioxide Level 30.3 MEQ/L Anion Gap 5 MEQ/L Blood Urea Nitrogen 15 MG/DL Creatinine 0.68 MG/DL Estimat Glomerular Filtration 123 ML/MIN Rate Random Glucose 89 MG/DL Calcium Level 8.4 MG/DL Total Bilirubin 0.1 MG/DL Aspartate Amino Transf 12 U/L (AST/SGOT) Alanine Aminotransferase 16 U/L (ALT/SGPT) Alkaline Phosphatase 61 U/L Total Protein 7.4 GM/DL Albumin 3.0 GM/DL Lipase 98 U/L MDM Medical Decision Making Medical Screen Exam Complete: Yes Emergency Medical Condition: Yes Medical Record Reviewed: Yes Interpretation(s) [id number] hCG: Negative CBC & BMP Diagram 04/29/17 23:25 Vital Signs Date Time Temp Pulse Resp B/P Pulse Ox O2 Delivery O2 Flow Rate FiO2 04/30/17 00:41 79 18 118/63 100 Room Air 04/29/17 22:41 98.4 76 20 126/[address] abd/pel: CONCLUSION: No acute CT findings in the abdomen or pelvis. Ran Ortiz MD on April 30, 2017 at 1:09 Board Certified Radiologist. This report was verified electronically. Differential Diagnosis Abdominal pain, gastroenteritis, colitis, UTI, , ectopic , ovarian cyst, ruptured ovarian cyst, Narrative Course IV access obtained specimens collected and sent for resulting; [id number] hCG negative Lab values found to be grossly normal range mild anemia hemoglobin 9.6 CT abdomen and pelvis ordered Patient resting comfortably CT abdomen and pelvis resulted and found to be normal Patient informed of lab results and imaging results and is stable for outpatient management will be provided prescription for Zofran as needed for nausea and/or vomiting Diagnosis Primary Impression: Nausea & vomiting Qualified Code: R11.2 - Non-intractable vomiting with nausea, unspecified vomiting type Additional Impression: Gastroenteritis Referrals: Primary Care Physician call for appointment Patient Instructions: General Instructions Departure Forms: Tests/Procedures, Work Release Special Instructions: no work x 1 day Additional Instructions: Follow clear liquid diet for next 12-24 hours advance diet as tolerated to bland /Joceline diet then regular diet as tolerated Takes Zofran as prescribed as needed for nausea and/or vomiting Follow-up with your primary care provider Return to the emergency department for any concerns or change in condition No work times one day Med/Other Pt SpecificInfo: Prescription(s) given Scripts Ondansetron Odt (Zofran Odt)4 Mg Tab4 Mg SL Q6HR PRN (Nausea/Vomiting) #10 TAB Ref 0 Prov:Zoë Blood MD 04/30/17 Zoë Blood MD April 29, 2017 23:20
[2017-04-29] MEDS ORDERED: SODIUM CHLORIDE 0.9% FLUSH 10 ML FLUSH IV FLUSH PRN (23:30)
[2017-04-29] MEDS ORDERED: ONDANSETRON HCL 4 MG/2 ML VIAL IVP ONE (23:30)
[2017-04-30 00:05] LABS: AUTOMATED NEUTROPHIL # 3.5 TH/MM3 (1.8-7.7); BASOPHIL # 0.1 TH/MM3 (0-0.2); BASOPHIL % 0.9 % (0.0-2.0); EOSINOPHIL # 0.2 TH/MM3 (0-0.4); HEMATOCRIT 30.8 % (35.0-46.0); HEMO FLAGS DIFF FINAL; LYMPHOCYTE # 2.4 TH/MM3 (1.0-4.8); MEAN CORPUSCULAR HEMOGLOBIN 24.3 PG (27.0-34.0); MEAN CORPUSCULAR HGB CONC 31.2 % (32.0-36.0); MONO % 5.9 % (0.0-8.0); NEUT % 53.2 % (16.0-70.0); PLATELET COUNT 423 TH/MM3 (150-450); RED BLOOD COUNT 3.95 MIL/MM3 (4.00-5.30); RED CELL DISTRIBUTION WIDTH 16.1 % (11.6-17.2); WHITE BLOOD COUNT 6.6 TH/MM3 (4.0-11.0)
[2017-04-30 00:11] LABS: BLOOD, URINE TRACE (NEG); COMMENT (UR) CULT NOT INDICATED; CULTURE IF INDICATED CULT NOT INDICATED; GLUCOSE,URINE NEG (NEG); KETONE, URINE NEG (NEG); MUCUS URINE FEW /lpf (OCC); NITRITE,URINE NEG (NEG); SQUAMOUS EPITHELIAL CELL URINE 5 /hpf (0-5); URINE COLOR YELLOW (YELLW/STRAW)
[2017-04-30 00:29] LABS: ALKALINE PHOSPHATASE 61 U/L (45-117); TOTAL BILIRUBIN ADULT 0.1 MG/DL (0.2-1.0)
[2017-04-30 00:30] LABS: ALT (GPT) 16 U/L (10-53); ANION GAP 5 MEQ/L (5-15); AST (GOT) 12 U/L (15-37); BICARBONATE 30.3 MEQ/L (21.0-32.0); BLOOD UREA NITROGEN 15 MG/DL (7-18); CHLORIDE 107 MEQ/L (98-107); GLOMERULAR FILTRATION RATE 123 ML/MIN (>89); SODIUM (NA) 142 MEQ/L (136-145)
[2017-04-30 00:41] VITALS: BP 118/63; PULSE 79; RESP 18; O2SAT 100
[2017-04-30] MEDS ORDERED: IOHEXOL 350 MG/ML 10 ML VIAL (for RAD DIAG) IV ONE (00:59)
--- NOTE | 2017-04-30 01:15 | RADRPT ---
EXAM DATE/TIME: 04/30/2017 00:56 [facility] COMPARISON: No previous studies available for comparison. INDICATIONS : Lower abdominal pain and vomiting. IV CONTRAST: 96 cc Omnipaque 350 (iohexol) IV ORAL CONTRAST: No oral contrast ingested. RADIATION DOSE: 22.64 CTDIvol (mGy) MEDICAL HISTORY : None SURGICAL HISTORY : None. ENCOUNTER: Initial ACUITY: 1 day PAIN SCALE: 8/10 LOCATION: Bilateral lower quadrant TECHNIQUE: Volumetric scanning of the abdomen and pelvis was performed. Using automated exposure control and ad justment of the mA and/or kV according to patient size, radiation dose was kept as low as reasonably achievable to obtain optimal diagnostic quality images. FINDINGS: LOWER LUNGS: The visualized lower lungs are clear. LIVER: Homogeneous density without lesion. There is no dilation of the biliary tree. No calcified gallston es. SPLEEN: Normal size without lesion. PANCREAS: Within normal limits. KIDNEYS: Normal in size and shape. There is no mass, stone or hydronephrosis. ADRENAL GLANDS: Within normal limits. VASCULAR: There is no aortic aneurysm. BOWEL/MESENTERY: The stomach, small bowel, and colon demonstrate no acute abnormality. There is no free intraperitone al air or fluid. ABDOMINAL WALL: Within normal limits. RETROPERITONEUM: There is no lymphadenopathy. BLADDER: No wall thickening or mass. REPRODUCTIVE: Within normal limits. INGUINAL: There is no lymphadenopathy or hernia. MUSCULOSKELETAL: Within normal limits for patient age. CONCLUSION: No acute CT findings in the abdomen or pelvis. Rna Ortiz MD on April 30, 2017 at 1:09 Board Certified Radiologist. This report was verified electronically.
[2017-04-30] MEDS ORDERED: ZOFR4TAB3 SL (01:23)
[2017-04-30 01:42] VITALS: BP 115/66
== END 2017-04-30 01:57 | disposition home or self-care (01) ==
LOC: NEPC 22:34
DX: K52.9 Noninfective gastroenteritis and colitis, unspecified (principal)
CPT/HCPCS: 74177; 80053; 81001; 83690; 84703; 85025; 96374; 99285; J2405; J7030; Q9967

== ENCOUNTER 2017-05-06 19:30 | Emergency (ER) | payer SELFPAY ==
[~2017-05-06 19:30] MED LIST changes: -BACT800T5 PO; -ZOFR4TAB PO; +ZOFR4TAB3 SL
[2017-05-06 19:36] VITALS: BP 141/65; PULSE 81; RESP 16; TEMP 97.8; O2SAT 97
--- NOTE | 2017-05-06 20:27 | PD ---
Physical Exam Time Seen by Provider: 20:24 Narrative 31yo F c/o hitting L knee on table four days w/ swelling and pain of L lower extremity. Denies fever, vomiting. Denies ankle or foot injury. Patient seen in triage. VS reviewed. Awaiting bed placement. Data Data Last Documented VS Vital Signs Date Time Temp Pulse Resp B/P Pulse Ox O2 Delivery O2 Flow Rate FiO2 05/06/17 19:36 97.8 81 16 141/65 97 Room Air MDM Supervised Visit with NILSA: Leeanna Llanos May 06, 2017 20:27
--- NOTE | 2017-05-06 21:14 | RADRPT ---
EXAM DATE/TIME: 05/06/2017 20:54 [facility] COMPARISON: No previous studies available for comparison. INDICATIONS : Patient hit left knee on coffee table four days ago and has pain radiating down to her foot. MEDICAL HISTORY : Asthma. SURGICAL HISTORY : None. ENCOUNTER: Initial ACUITY: 4 - 6 days PAIN SCORE: 10/10 LOCATION: Left Foot through knee. FINDINGS: Three view examination of the left foot demonstrates no acute dislocation or fracture. There is sof t tissue prominence over the dorsum of the midfoot. The tarsal bones appear intact. The interphalang eal and metatarsophalangeal joints are intact. The calcaneus is intact. Bony mineralization is norm al. CONCLUSION: Soft tissue prominence over the dorsum of the midfoot with no underlying bony abnorma brittneyy. Weston Gamboa MD on May 06, 2017 at 21:11 Board Certified Radiologist. This report was verified electronically.
--- NOTE | 2017-05-06 21:49 | PD ---
HPI Chief Complaint: Injury Time Seen by Provider: 21:45 Travel History International Travel<30 days: No Contact w/Intl Traveler<30days: No Traveled to known affect area: No History of Present Illness HPI Patient is a 31-year-old female presenting to emergency for evaluation of 4 days of left knee and left lower extremity swelling. Patient states she hit the top of her left knee 4 days ago, since that time she's had increasing pain and swelling in her calf and foot. She reports the pain as a 7 out of 10. She states her pain is aching and sore, she has increased pain when she ambulates. She denies any significant past medical history. She denies any other complaints at this time. [facility] Past Medical History Asthma: Yes Diminished Hearing: No Respiratory: Yes (ASTHMA) ?: Not LMP: 04/19/17 : 2 Para: 0 Miscarriage: 2 Social History Alcohol Use: No Tobacco Use: Yes (black and milds) Substance Use: No Allergies-Medications (Allergen,Severity, Reaction): Uncoded Allergies: gatorade (Allergy, Severe, 11/21/16) Reported Meds & Prescriptions Reported Meds & Active Scripts Active Reported Albuterol Neb (Albuterol Sulfate) 0.63 Mg/3 Ml Neb 0.63 Mg NEB Q4HR NEB PRN Review of Systems Except as stated in HPI: all other systems reviewed are Neg Musculoskeletal: Positive: Myalgias, Cramping, Edema, Pain Physical Exam Narrative GENERAL: Well-nourished, well-developed patient. SKIN: Focused skin assessment warm/dry. HEAD: Normocephalic. EYES: No scleral icterus. No injection or drainage. NECK: Supple, trachea midline. No JVD or lymphadenopathy. CARDIOVASCULAR: Regular rate and rhythm without murmurs, gallops, or rubs. RESPIRATORY: Breath sounds equal bilaterally. No accessory muscle use. GASTROINTESTINAL: Abdomen soft, non-tender, nondistended. MUSCULOSKELETAL: No cyanosis, edema noted to left calf and left foot on the dorsal aspect. Positive Homans sign on left, positive pedal pulse. Full range of motion in left knee. BACK: Nontender without obvious deformity. No CVA tenderness. Data Data Last Documented VS Vital Signs Date Time Temp Pulse Resp B/P Pulse Ox O2 Delivery O2 Flow Rate FiO2 05/06/17 19:36 97.8 81 16 141/65 97 Room Air Orders Foot, Complete ([id number]) (05/06/17 ) Us Leg Venous Doppler (05/06/17 ) Knee, Complete (4vws) (05/06/17 ) [facility] Medical Decision Making Medical Screen Exam Complete: Yes Emergency Medical Condition: Yes Interpretation(s) Last Impressions Knee X-Ray 05/06/17 0000 Signed Impressions: Service Date/Time: Saturday, May 06, 2017 21:56 - CONCLUSION: Negative trauma study. eWston Gamboa MD Foot X-Ray 05/06/17 0000 Signed Impressions: Service Date/Time: Saturday, May 06, 2017 20:54 - CONCLUSION: Soft tissue prominence over the dorsum of the midfoot with no underlying bony abnormality. Weston Gamboa MD Vital Signs Date Time Temp Pulse Resp B/P Pulse Ox O2 Delivery O2 Flow Rate FiO2 05/06/17 19:36 97.8 81 16 141/65 97 Room Air Differential Diagnosis DVT versus Augustine cyst versus contusion versus fracture versus sprain versus strain versus other Narrative Course Patient is a 31-year-old female presenting with 4 days of left knee and left lower extremity pain and swelling. Patient is neurovascularly intact. Imaging ordered and pending. X-ray of the left knee and foot are negative for acute fracture or abnormality. X-ray of the left foot does show soft tissue swelling on the dorsal aspect. Ultrasound left lower extremity is negative for DVT. Patient is encouraged to patient was encouraged to rest, ice, elevate extremity. She was encouraged to continue range of motion exercises, apply warm moist heat to affected area, avoid exacerbating activities. She is encouraged follow-up with her primary doctor return to emergency department for any new or worsening symptoms. Patient verbalized understanding of instructions. Patient is stable for discharge. Diagnosis Primary Impression: Knee pain Qualified Code: M25.562 - Left knee pain, unspecified chronicity Additional Impression: Edema leg Referrals: [facility] Primary Care Physician Patient Instructions: General Instructions, Knee Pain (ED), Leg Edema (ED) Additional Instructions: Rest, ice, elevate extremity Take medications as directed Follow-up with your primary doctor Return to emergency department for any new or worsening symptoms Med/Other Pt SpecificInfo: Prescription(s) given Scripts Cyclobenzaprine (Flexeril)10 Mg Tab10 Mg PO TID PRN (MUSCLE SPASM) 10 Days Ref 0 Prov:Maryellen Lopez 05/06/17 Ibuprofen 800 Mg [id number] Mg PO Q6HR PRN (PAIN) #40 TAB Ref 0 Prov:Maryellen Lopez 05/06/17 Disposition: 01 DISCHARGE HOME Condition: Stable Maryellen Lopez May 06, 2017 21:49
--- NOTE | 2017-05-06 22:15 | RADRPT ---
EXAM DATE/TIME: 05/06/2017 21:56 [facility] COMPARISON: No previous studies available for comparison. INDICATIONS : Patient complains of left knee pain after hitting left knee on kitchen table. MEDICAL HISTORY : None. SURGICAL HISTORY : None. ENCOUNTER: Initial ACUITY: 4 - 6 days PAIN SCORE: 10/10 LOCATION: Left Knee FINDINGS: Four view examination of the left knee demonstrates no evidence of fracture or dislocation. Bony min eralization is normal. The articular surfaces are intact. The suprapatellar soft tissues have a nor mal configuration. CONCLUSION: Negative trauma study. Weston Gamboa MD on May 06, 2017 at 22:07 Board Certified Radiologist. This report was verified electronically.
--- NOTE | 2017-05-06 22:50 | RADRPT ---
EXAM DATE/TIME: 05/06/2017 22:23 [facility] COMPARISON: No previous studies available for comparison. INDICATIONS : Left leg swelling. MEDICAL HISTORY : . Asthma. Tobacco use. SURGICAL HISTORY : None. ENCOUNTER: Initial ACUITY: 4 - 6 days PAIN SCORE: 6/10 LOCATION: Left leg. TECHNIQUE: Venous ultrasound of the leg was performed from the inguinal ligament to the proximal calf. Real-tonia e, color Doppler and spectral tracing, compression and augmentation techniques were used. FINDINGS: There is normal compressibility of the deep venous system from the inguinal region to the proximal ca lf. No echogenic clot is seen in the lumen of the common femoral, femoral, popliteal, and posterior tibial veins. There is a normal response of the venous system to proximal and distal augmentation an d respiration. CONCLUSION: Negative exam with no evidence of deep venous thrombosis. Weston Gamboa MD on May 06, 2017 at 22:48 Board Certified Radiologist. This report was verified electronically.
[2017-05-06] MEDS ORDERED: IBUP800T23 PO (22:55)
[2017-05-06] MEDS ORDERED: CYCL1TAB29 PO (22:55)
== END 2017-05-06 23:13 | disposition home or self-care (01) ==
LOC: NEPD 19:30
DX: M25.562 Pain in left knee (principal); R60.0 Localized edema; Z72.0 Tobacco use
CPT/HCPCS: 73564; 73630; 93971

== ENCOUNTER 2017-05-30 19:31 | Emergency (ER) | payer SELFPAY ==
[~2017-05-30] VITALS: Ht 170.2 cm; Wt 135.0 kg
[~2017-05-30 19:31] MED LIST changes: +CYCL1TAB29 PO; +IBUP800T23 PO; -ZOFR4TAB3 SL
[2017-05-30 19:41] VITALS: BP 146/85; PULSE 86; RESP 16; TEMP 97.9; O2SAT 99
[2017-05-30 20:25] LABS: AUTOMATED NEUTROPHIL # 3.7 TH/MM3 (1.8-7.7); BASOPHIL # 0.1 TH/MM3 (0-0.2); BASOPHIL % 0.9 % (0.0-2.0); EOSINOPHIL # 0.2 TH/MM3 (0-0.4); EOSINOPHIL % 3.1 % (0.0-4.0); HEMATOCRIT 29.5 % (35.0-46.0); HEMO FLAGS DIFF FINAL; LYMPH % 38.7 % (9.0-44.0); MEAN CELL VOLUME 74.8 FL (80.0-100.0); MEAN CORPUSCULAR HEMOGLOBIN 23.6 PG (27.0-34.0); MEAN CORPUSCULAR HGB CONC 31.5 % (32.0-36.0); MONO % 9.6 % (0.0-8.0); NEUT % 47.7 % (16.0-70.0); PLATELET COUNT 432 TH/MM3 (150-450); RED BLOOD COUNT 3.95 MIL/MM3 (4.00-5.30); RED CELL DISTRIBUTION WIDTH 17.1 % (11.6-17.2); WHITE BLOOD COUNT 7.8 TH/MM3 (4.0-11.0)
--- NOTE | 2017-05-30 20:45 | PD ---
HPI Chief Complaint: Related Problem Time Seen by Provider: 20:40 Travel History International Travel<30 days: No Contact w/Intl Traveler<30days: No Traveled to known affect area: No History of Present Illness HPI 32-year-old female that presents to the ED for evaluation of abdominal pain, vaginal bleeding and possible . Per patient she is about 4 weeks . Patient came here by ambulance. Per patient the pain developed about 40 minutes before coming. Per patient she was told a different hospital that she was . Per patient she is usually regular. Per patient she's had some bleeding. Per patient the pain is on the left lower quadrant. She states that the discharge is blood. She denies any other discharge. Per patient her pain is 4 out of 10. Per patient she is concerned because she's had miscarriages in the past. Allergy to Gatorade. No back pain. No urinary symptoms. No bowel movement issues. No surgeries. PFSH Past Medical History Asthma: Yes Diminished Hearing: No Respiratory: Yes (ASTHMA) Influenza Vaccination: No ?: LMP: Apr 22 2017 : 4 Para: 0 Miscarriage: 3 Past Surgical History Surgical History: No Previous Surgery Social History Alcohol Use: No Tobacco Use: Yes (black and milds) Substance Use: Yes (Marijuana) Allergies-Medications (Allergen,Severity, Reaction): Uncoded Allergies: gatorade (Allergy, Severe, 11/21/16) Reported Meds & Prescriptions Reported Meds & Active Scripts Active Diclofenac Sodium DR (Diclofenac Sodium) 75 Mg Tabdr 75 Mg PO BID PRN Reported Albuterol Neb (Albuterol Sulfate) 0.63 Mg/3 Ml Neb 0.63 Mg NEB Q4HR NEB PRN Review of Systems Except as stated in HPI: all other systems reviewed are Neg Physical Exam Narrative GENERAL: SKIN: Warm and dry. HEAD: Atraumatic. Normocephalic. EYES: Pupils equal and round. No scleral icterus. No injection or drainage. ENT: No nasal bleeding or discharge. Mucous membranes pink and moist. Tongue is midline. No uvula deviation. NECK: Trachea midline. No JVD. CARDIOVASCULAR: Regular rate and rhythm. No murmurs, S3, S4. RESPIRATORY: No accessory muscle use. Clear to auscultation. Breath sounds equal bilaterally. GASTROINTESTINAL: Abdomen soft, non-tender, nondistended. Hepatic and splenic margins not palpable. Pelvic exam: Seen with female nurse present. Patient does have bleeding noted but cervix is closed. Patient does have some tenderness to palpation on the left lower quadrant of the pelvis. Otherwise no adnexal tenderness. No masses noted. No discharge noted. MUSCULOSKELETAL: Extremities without clubbing, cyanosis, or edema. No obvious deformities. Full range of motion of upper and lower extremities bilaterally.2 + pulses bilaterally. NEUROLOGICAL: Awake and alert. No obvious cranial nerve deficits. Motor grossly within normal limits. Five out of 5 muscle strength in the arms and legs. Normal speech. PSYCHIATRIC: Appropriate mood and affect; insight and judgment normal. Data Data Last Documented VS Vital Signs Date Time Temp Pulse Resp B/P Pulse Ox O2 Delivery O2 Flow Rate FiO2 05/30/17 19:41 97.9 86 16 146/85 99 Orders Complete Blood Count With Diff (05/30/17 19:49) Basic Metabolic Panel (Bmp) (05/30/17 19:49) Urinalysis - C+S If Indicated (05/30/17 19:49) Beta Hcg (Quant/Titer) (05/30/17 19:49) Complete Rh (05/30/17 19:49) Wet Prep Profile (05/30/17 19:49) Gc And Chlamydia Pcr (05/30/17 19:49) Ed Urine Pregnancytest Poc (05/30/17 19:49) Us Pelvis Comp Unloading Checker/Non-Preg (05/30/17 20:16) Urine Culture (05/30/17 19:58) Ketorolac Inj (Toradol Inj) (05/30/17 22:00) Labs Laboratory Tests Test 05/30/17 05/30/17 05/30/17 19:53 19:58 20:05 White Blood Count 7.8 TH/MM3 Red Blood Count 3.95 MIL/MM3 Hemoglobin 9.3 GM/DL Hematocrit 29.5 % Mean Corpuscular Volume 74.8 FL Mean Corpuscular Hemoglobin 23.6 PG Mean Corpuscular Hemoglobin 31.5 % Concent Red Cell Distribution Width 17.1 % Platelet Count 432 TH/MM3 Mean Platelet Volume 8.2 FL Neutrophils (%) (Auto) 47.7 % Lymphocytes (%) (Auto) 38.7 % Monocytes (%) (Auto) 9.6 % Eosinophils (%) (Auto) 3.1 % Basophils (%) (Auto) 0.9 % Neutrophils # (Auto) 3.7 TH/MM3 Lymphocytes # (Auto) 3.0 TH/MM3 Monocytes # (Auto) 0.7 TH/MM3 Eosinophils # (Auto) 0.2 TH/MM3 Basophils # (Auto) 0.1 TH/MM3 CBC Comment DIFF FINAL Differential Comment Sodium Level 140 MEQ/L Potassium Level 3.2 MEQ/L Chloride Level 106 MEQ/L Carbon Dioxide Level 27.1 MEQ/L Anion Gap 7 MEQ/L Blood Urea Nitrogen 12 MG/DL Creatinine 0.66 MG/DL Estimat Glomerular Filtration 126 ML/MIN Rate Random Glucose 85 MG/DL Calcium Level 8.7 MG/DL Human Chorionic Gonadotropin, LESS THAN 1 Quant MIU/ML Blood Type A POSITIVE Rho(D) Type POSITIVE Urine Color RED Urine Turbidity HAZY Urine pH 5.5 Urine Specific [place] 1.027 Urine Protein 100 mg/dL Urine Glucose (UA) NEG mg/dL Urine Ketones 10 mg/dL Urine Occult Blood LARGE Urine Nitrite NEG Urine Bilirubin NEG Urine Urobilinogen 2.0 MG/DL Urine Leukocyte Esterase MOD Urine RBC /hpf Urine WBC 121 /hpf Urine Squamous Epithelial 11 /hpf Cells Urine Bacteria OCC /hpf Urine Mucus MANY /lpf Microscopic Urinalysis Comment CULTURE INDICATED Clue Cells (Wet Prep) NONE SEEN Vaginal Trichomonas (Wet Prep) NONE SEEN Vaginal Yeast (Wet Prep) NONE SEEN MDM Medical Decision Making Medical Screen Exam Complete: Yes Emergency Medical Condition: Yes Medical Record Reviewed: Yes Interpretation(s) CBC & BMP Diagram 05/30/17 19:53 beta negative UA shows UTI Last Impressions Pelvis Ultrasound 05/30/172015 Signed Impressions: Service Date/Time: Thursday, May 30, 2017 21:02 - CONCLUSION: 1.2 cm echogenic focus in the central uterine fundus. This may represent a prominent distal aspect the endometrial cavity. A leiomyoma could conceivably have this appearance although they typically demonstrate decreased through transmission. An adnexal mass is not seen. Ran Kinsey MD wet prep negative Differential Diagnosis Miscarriage versus torsion versus cyst versus versus ectopic Narrative Course 32-year-old female that presents to the ED for evaluation of vaginal bleeding and lower quadrant pain. Patient was properly examined and was found to have signs and symptoms initially concerning for ectopic as well as possible miscarriage. During here was negative. Patient states that she had a blood test at a different hospital about 2 weeks ago that was positive. We'll do blood work as well as ultrasound. Patient is in agreement with this plan. Pelvic exam was unremarkable other than for bleeding. Labs and imaging showed no sign of acute disease other than possible UTI. Not . Patient had some abnormality noted on the ultrasound of unclear significance. Recommendation is to outpatient follow-up. Patient was given a prescription for Bactrim and diclofenac sodium. Patient was given Toradol for pain here. Follow with PCP. See ED worsening symptoms. Diagnosis Primary Impression: Dysmenorrhea Additional Impression: UTI (urinary tract infection) Qualified Code: N30.01 - Acute cystitis with hematuria Patient Instructions: General Instructions Additional Instructions: Take medication as prescribed. Follow with PCP. Follow-up with BUILDING ATTENDANT. See ED worsening symptoms. Med/Other Pt SpecificInfo: Prescription(s) given Scripts Diclofenac Sodium DR 75 Mg Tabdr75 Mg PO BID PRN (PAIN SCALE 1 TO 10) #20 TAB Prov:Lauro Anne MD 05/30/17 Disposition: 01 DISCHARGE HOME Condition: Stable Enrike Cunningham May 30, 2017 20:45
[2017-05-30 20:49] LABS: BACTERIA, URINE OCC /hpf; BLOOD, URINE LARGE (NEG); COMMENT (UR) CULTURE INDICATED; CULTURE IF INDICATED CULTURE INDICATED; GLUCOSE,URINE NEG (NEG); KETONE, URINE 10 mg/dL (NEG); MUCUS URINE MANY /lpf (OCC); NITRITE,URINE NEG (NEG); PH, URINE 5.5 (5.0-8.5); SQUAMOUS EPITHELIAL CELL URINE 11 /hpf (0-5); URINE COLOR RED (YELLW/STRAW)
[2017-05-30 21:03] LABS: ANION GAP 7 MEQ/L (5-15); BICARBONATE 27.1 MEQ/L (21.0-32.0); BLOOD UREA NITROGEN 12 MG/DL (7-18); CHLORIDE 106 MEQ/L (98-107); GLOMERULAR FILTRATION RATE 126 ML/MIN (>89); POTASSIUM 3.2 MEQ/L (3.5-5.1); SODIUM (NA) 140 MEQ/L (136-145)
[2017-05-30 21:07] LABS: BETA HCG QUANT LESS THAN 1 MIU/ML (0-5)
--- NOTE | 2017-05-30 21:51 | RADRPT ---
EXAM DATE/TIME: 05/30/2017 21:02 [facility] COMPARISON: CT ABDOMEN & PELVIS W CONTRAST, April 30, 2017, 0:56. INDICATIONS : Pelvic pain. MEDICAL HISTORY : . Asthma. Smoker. SURGICAL HISTORY : None. ENCOUNTER: Initial ACUITY: 2 days PAIN SCORE: 8/10 LOCATION: Bilateral pelvis MEASUREMENTS: UTERUS: 7.4 x 3.4 x 4.5 cm ENDOMETRIAL STRIPE: 3 mm RIGHT OVARY: 3.5 x 1.9 x 1.9 cm LEFT OVARY: 3.5 x 2.1 x 2.0 cm FINDINGS: UTERUS: A gestational sac is not seen. The endometrium is not thickened measuring 3 mm. There is a 1.2 cm echogenic area with increased through transmission seen in the central uterine fundal region . RIGHT OVARY: Ovary contains no mass or significant cystic lesion. LEFT OVARY: Ovary contains no mass or significant cystic lesion. MISCELLANEOUS: No free fluid. CONCLUSION: 1.2 cm echogenic focus in the central uterine fundus. This may represent a prominent distal aspect the endometrial cavity. A leiomyoma could conceivably have this appearance although the y typically demonstrate decreased through transmission. An adnexal mass is not seen. Ran Kinsey MD on May 30, 2017 at 21:45 Board Certified Radiologist. This report was verified electronically.
[2017-05-30] MEDS ORDERED: DICL75TA PO (21:57)
[2017-05-30] MEDS ORDERED: BACT800T5 PO (22:00)
[2017-05-30] MEDS ORDERED: KETOROLAC TROMETHAMINE 30 MG/ML (IVP) VIAL IV PUSH ONE (22:00)
[2017-05-30 22:21] LABS: CHLAMYDIA PCR NOT DETECTED (NOT DETECT); NEISSERIA PCR NOT DETECTED (NOT DETECT)
== END 2017-05-30 23:11 | disposition home or self-care (01) ==
LOC: NEPE 19:31
DX: N94.6 Dysmenorrhea, unspecified (principal); N30.01 Acute cystitis with hematuria; Z72.0 Tobacco use; Z87.09 Personal history of other diseases of the respiratory system
CPT/HCPCS: 76856; 80048; 81001; 84702; 84703; 85025; 86901; 87086; 87210; 87491; 87591; 96374; 99285; J1885